=== PATIENT | female | born 1995 | race Caucasian/White ===

== ENCOUNTER 2021-05-27 17:05 | Emergency (ER) | payer OTHER ==
[~2021-05-27] VITALS: Ht 149.9 cm; Wt 77.0 kg
[2021-05-27] MEDS ORDERED: HYDROCODONE/ACETAMINOPHEN 5/325MG TABLET PO STA (20:33)
[2021-05-27] MEDS ORDERED: IBUPROFEN 600MG TABLET PO STA (20:33)
[2021-05-27 21:46] LABS: BASOPHILS % 0.6 % (0.0-2.0); EOSINOPHILS % 2.3 % (0.0-5.0); HEMOGLOBIN. 13.6 g/dL (12.0-16.0); LYMPHOCYTES % 43.4 % (20.0-50.0); MEAN CORPUSCULAR HEMOGLOBIN 30.6 pg (28.0-32.0); MEAN CORPUSCULAR VOLUME 89.8 fL (81.0-99.0); MEAN PLATELET VOLUME 10.3 fl (7.4-10.4); MONOCYTES % 7.3 % (2.0-8.0); NEUTROPHILS % 46.4 % (40.0-76.0); PLATELET 279 x1000/uL (130-400); RED BLOOD CELL COUNT 4.46 mill/uL (4.2-5.4)
[2021-05-27 21:53] LABS: CHLORIDE 112 mEq/L (98-107)
[2021-05-27 21:55] LABS: HCG SCREEN NEGATIVE
[2021-05-27 21:57] LABS: CLARITY URINE TURBID (CLEAR); COLOR URINE YELLOW (YELLOW); KETONES URINE TRACE (NEGATIVE); LEUKOCYTE ESTERASE URINE TRACE (NEGATIVE); NITRITE URINE NEGATIVE (NEGATIVE); OCCULT BLOOD URINE NEGATIVE (NEGATIVE); PH URINE 8.5 (4.5-8.0); PROTEIN URINE TRACE (NEGATIVE)
[2021-05-27] MEDS ORDERED: CEPH500C2 MT (23:19)
[2021-05-27] MEDS ORDERED: CEPHALEXIN 250MG CAPSULE PO ONE (23:30)
[2021-05-27 23:37] VITALS: BP 129/73
== END 2021-05-27 23:38 | disposition home or self-care (01) ==
LOC: ER 17:05
DX: N39.0 Urinary tract infection, site not specified (principal); R10.9 Unspecified abdominal pain; I63.9 Cerebral infarction, unspecified
CPT/HCPCS: 36415; 74176; 80053; 81003; 84703; 85025; 99284